=== PATIENT | female | born 1965 | race Caucasian/White ===

== ENCOUNTER 2024-11-07 09:11 | Outpatient (AMB) | payer MEDICAID, SELFPAY ==
[2024-11-07 09:48] VITALS: BP 157/85; PULSE 75; RESP 19; TEMP 36.4; O2SAT 98; BMI 30.7
--- NOTE | 2024-11-07 09:48 | PD.ORTHCLVIS ---
Vital signs 11/07/24 09:48 Height 1.55 m Height Method Stated Weight 73.964 kg Weight Measurement Method Standing Scale BMI 30.7 BP 157/85 H Blood Pressure Source Automatic Cuff Blood Pressure Location Right Upper Arm Position Sitting Respiration 19 Pulse 75 Pulse Source Monitor Temp 97.5 F Temp Source Oral Pulse Oximetry (%) 98 Oxygen Delivery Method Room Air Med/Allergies Allergies & Medications Allergies No Known Allergies Allergy (Verified 11/07/24 09:51) Medication Reconciliation pregabalin 75 mg capsule 75 mg PO bid #45 caps 09/18/23 [Rx Confirmed 11/07/24] ibuprofen 600 mg tablet 600 mg PO Q6H PRN 11/07/24 [History Confirmed 11/07/24] meloxicam 7.5 mg tablet 7.5 mg PO QDAY #45 tabs 11/07/24 [Rx] Exam Exam Patient is in no acute distress and is cooperative with the examination today. Patient has a normal mood and affect. Breathing is nonlabored. In no respiratory distress. Bilateral extremities were evaluated and demonstrates sensation intact to light touch. Palpable pedal pulses are present. No significant edema is present. Left knee incisions clean dry intact. Range of motion 0 to 105 degrees Right knee is tender to palpation medially. Her knee feels stable varus valgus stress. X-rays were personally reviewed by me today. This demonstrates a left total knee replacement in good alignment position. I do not see any evidence of loosening. For the right knee, she has mild arthritis but these films are nonweightbearing. Assessment and Plan Problem List (1) Arthritis of knee, right: Status: Acute Plan: Patient is a 59-year-old female with right knee arthritis and a left total knee replacement with persistent numbness tingling and is still painful. We discussed that nerve issues are sometimes common after left total knee replacement especially over the infrapatellar branch of the saphenous nerve. We discussed cortisone injections and conservative treatment for the right side. I would Also like to get new weightbearing x-rays Recommend knee cortisone injection as patient would like to proceed with conservative treatment at this time. The risks and benefits of the procedure were reviewed with the patient and patient gave verbal consent to continue with the procedure. Procedure: performed by Dr. Quintana Using sterile technique the Right knee was thoroughly prepped with alcohol, and approximately 1 cc of Kenalog 40 mg/mL and 4 cc of 1% lidocaine was injected without resistance into the medial tibial femoral joint space. The patient tolerated the procedure. Office Procedures GNS Level of Care Nursing/Assessment Patient Status: Established Patient Nursing Assessment/Reassesment: Medication Reconciliation, Update PMH in EMR and Vital Signs Coordination of Care: Complex Care/Chronic Disease 5 or more, Education Complex Pt/Fam, Consent,records obtained, informed consent, Results/Orders obtained and Staff clarify orders Special Needs: Language special needs Established Patient Charge Established Patient Point Assignment: 105 Established Patient Point Charge: EP Level 3 (80-115) Surgical Proc/IM SQ injection Major Surgical Procedure: Yes (RIGHT KNEE INJECTION) Medication Given Medication Given Medication Given: Yes Documented Dose Given: 4 Route: Infiitration Medication Given Medication Given Medication Given: Yes Documented Dose Given: 1 Route: Infiitration Office Meds Xylocaine 10 mg/mL (1 %) injection solution Performing Provider: Eugenio Quintana MD Performing Location: [facility] Administered by: Eugenio Quintana MD on 11/07/24 10:04 Dose Route Admin Location Dispensed Lot Number Expiration Date [facility] Access Clerk 20 mL Infiltration 20 mL [id number] 02/17/28 49663-993-10 [facility] triamcinolone acetonide 40 mg/mL suspension for injection Performing Provider: Eugenio Quintana MD Performing Location: [facility] Administered by: Eugenio Quintana MD on 11/07/24 10:04 Dose Route Admin Location Dispensed Lot Number Expiration Date [place] Access Clerk 40 mg Infiltration KNEE 1 mL [id number] 06/18/26 1689-5428-53 TEVA PARENTERAL MA Intake Visit Data Collection New Patient or Established: Established Patient (seen at [facility] within 3 years) Reason for Visit:: LEFT KNEE PAIN Linux Programmer Required: Yes Linux Programmer's name/title: DENISE PADGETT Do You Feel Safe at Home: Yes Questionairres Past Medical History Past Medical History Have you ever been diagnosed with any of the following: Respiratory Problems Smoking: No Smoking Exposure: No Subjective Visit Visit for: follow up visit and knee (LEFT) Immunization / Flu Flu Vaccine in the Last 12 Months: Yes Flu Vaccine Exclusion Criteria: No Exclusion Criteria History of Present Illness Chief complaint: LEFT KNEE PAIN Patient is a 59-year-old female with a painful left total knee replacement done by another surgeon in [place]. She reports the right knee has been bothering her as well. She has an MRI as well as x-rays. The MRI demonstrated a subchondral insufficiency fracture of the medial tibial plateau. She has not had conservative treatment. We will start her on anti-inflammatories and injections. I will also get weightbearing x-rays Personal History Red flag PMH: none BMI Counceling provided: Yes Pain Pain level (0-10): 9 Pain duration: CONSTANT Pain location: inside (medial) Pain quality: sharp and aching Pain timing: increases with activity Associated signs & symptoms: none Ambulatory data Ambulatory device: none Review of Systems Review of Systems: All systems negative unless otherwise noted in HPI.
--- NOTE | 2024-11-07 09:58 | XR_ITS ---
Examination: Bilateral AP knees standing single view AP lateral axial right knee PA flexion 3 views TECHNIQUE: Bilateral AP knees standing single view Standing PA flexion single view Standing lateral axial right knee 2 views total 4 views Exam date and time: 08/09/2024 1016 hours INDICATIONS: Right knee pain 3 months FINDINGS: Advanced narrowing medial joint space right knee Moderate osteopenia No patellar dislocation Moderate patellofemoral joint Total left knee arthroplasty. Satisfactory alignment IMPRESSION: Advanced narrowing medial joint space right knee
== END 2024-11-07 10:36 | disposition home or self-care (01) ==
LOC: HODSRG 09:11
PROVIDERS: Supervising Provider Orthopaedic Surgery Adult Reconstructive Orthopaedic Surgery; Visit Provider Orthopaedic Surgery Adult Reconstructive Orthopaedic Surgery
DX: M17.11 Unilateral primary osteoarthritis, right knee (principal); Z96.652 Presence of left artificial knee joint; T84.84XA Pain due to internal orthopedic prosthetic devices, implants and grafts, initial encounter
CPT/HCPCS: 20610; 73564; 99213; J3301; J3490; G0463

== ENCOUNTER 2024-12-02 13:04 | Outpatient (AMB) | payer MEDICAID, SELFPAY ==
[2024-12-02 13:40] VITALS: BP 157/85; PULSE 70; RESP 17; TEMP 36.3; O2SAT 96; BMI 30.7
--- NOTE | 2024-12-02 13:40 | ORTHONT_ITS ---
Vital signs 12/02/24 13:40 Height 1.55 m Height Method Stated Weight 73.964 kg Weight Measurement Method Standing Scale BMI 30.7 BP 157/85 H Blood Pressure Source Automatic Cuff Blood Pressure Location Right Upper Arm Position Sitting Respiration 17 Pulse 70 Pulse Source Monitor Temp 97.3 F Temp Source Temporal Artery Scan Pulse Oximetry (%) 96 Oxygen Delivery Method Room Air Med/Allergies Allergies & Medications Allergies No Known Allergies Allergy (Verified 12/02/24 13:41) Medication Reconciliation pregabalin 75 mg capsule 75 mg PO bid #45 caps 09/18/23 [Rx Confirmed 12/02/24] ibuprofen 600 mg tablet 600 mg PO Q6H PRN 11/07/24 [History Confirmed 12/02/24] meloxicam 7.5 mg tablet 7.5 mg PO QDAY #45 tabs 11/07/24 [Rx Confirmed 12/02/24] Exam Exam Patient is in no acute distress and is cooperative with the examination today. Patient has a normal mood and affect. Breathing is nonlabored. In no respiratory distress. Bilateral extremities were evaluated and demonstrates sensation intact to light touch. Palpable pedal pulses are present. No significant edema is present. Left knee incisions clean dry intact. Range of motion 0 to 105 degrees Right knee is tender to palpation medially. Her knee feels stable varus valgus stress. X-rays were personally reviewed by me today. This demonstrates a left total knee replacement in good alignment position. I do not see any evidence of loosening. For the right knee, she has significant joint space narrowing medially. Osteophytes are present as well. Assessment and Plan Problem List (1) Arthritis of knee, right: Status: Acute Plan: Patient is a 59-year-old female with right knee arthritis and a left total knee replacement with persistent numbness tingling and is still painful. We discussed that nerve issues are sometimes common after left total knee replacement especially over the infrapatellar branch of the saphenous nerve. She reports the nerve pain is now radiating to radiate down to her foot and I wonder if the spine could be a cause. I thus would recommend a MRI of the lumbar spine For the right knee, she has arthritis of Severe severity. I recommend conservative treatment for now. She is very much pushing for knee replacement. I discussed with her I recommend conservative treatment for now. I think the patient would benefit from seeing a structural steel painter given that she has a lot of nerve pain especially of the left leg. Office Procedures GNS Level of Care Nursing/Assessment Patient Status: Established Patient Nursing Assessment/Reassesment: Medication Reconciliation and Update PMH in EMR Coordination of Care: Complex Care and Chronic Disease 1-5, Consent,records obtained, informed consent, Education Simp Pt/Fam, Results/Orders obtained and Staff clarify orders Special Needs: Language special needs (GUAMANIAN ) Established Patient Charge Established Patient Point Assignment: 75 Established Patient Point Charge: EP Level 2 (40-75) MA Intake Visit Data Collection New Patient or Established: Established Patient (seen at [facility] within 3 years) Reason for Visit:: FU XRAY RESULT Seen by Clinical Staff ONLY (RN/MA): No Mortician Helper Required: Yes PCP or OBGYN visit in last 3 months: Yes Hx Now: No Do You Feel Safe at Home: Yes Authorities Contacted: N/A Questionairres Past Medical History Past Medical History Have you ever been diagnosed with any of the following: Respiratory Problems Smoking: No Smoking Exposure: No Subjective Visit Visit for: follow up visit and knee (RT KNEE PAIN) Immunization / Flu Flu Vaccine in the Last 12 Months: Yes Flu Vaccine Exclusion Criteria: Already Received History of Present Illness Chief complaint: LEFT KNEE PAIN Patient is a 59-year-old female with a painful left total knee replacement done by another surgeon in [place]. She reports the right knee has been bothering her as well. She has an MRI as well as x-rays. The MRI demonstrated a subchondral insufficiency fracture of the medial tibial plateau. She had an injection of the right knee and it is working. She is very emotional today. She reports that the left knee has significant numbness and tingling that starts in the radiates all the way to the foot. I discussed with her that this is likely a nerve. We spent over 20 minutes with the patient today consoling her. Personal History Red flag PMH: none BMI Counceling provided: Yes Pain Pain level (0-10): 8 Pain duration: 1 WEEK Pain location: anterior Pain quality: burning Pain timing: night and increases with activity Associated signs & symptoms: numbness, weakness and stiffness Ambulatory data Ambulatory device: none Walking distance (minutes): 1 Treatments Number of previous injections: 1 Improvement with previous injections: Yes Number of Physical Therapy sessions: 24 Improvement with PT: Yes Improvement with NSAIDS: n/a Review of Systems Review of Systems: All systems negative unless otherwise noted in HPI.
== END 2024-12-02 14:04 | disposition home or self-care (01) ==
LOC: HODSRG 13:04
PROVIDERS: Supervising Provider Orthopaedic Surgery Adult Reconstructive Orthopaedic Surgery; Visit Provider Orthopaedic Surgery Adult Reconstructive Orthopaedic Surgery
DX: M17.11 Unilateral primary osteoarthritis, right knee (principal); Z96.652 Presence of left artificial knee joint; R20.0 Anesthesia of skin
CPT/HCPCS: 99212; G0463

== ENCOUNTER 2025-02-10 08:07 | Outpatient (AMB) | payer MEDICAID, SELFPAY ==
[2025-02-10 08:21] VITALS: BP 164/85; PULSE 78; RESP 18; TEMP 36.4; O2SAT 97; BMI 30.6
--- NOTE | 2025-02-10 08:21 | PD.ORTHCLVIS ---
Vital signs 02/10/25 08:21 Height 1.55 m Height Method Stated Weight 73.51 kg Weight Measurement Method Standing Scale BMI 30.6 BP 164/85 H Blood Pressure Source Automatic Cuff Blood Pressure Location Right Upper Arm Position Sitting Respiration 18 Pulse 78 Pulse Source Monitor Temp 97.5 F Temp Source Temporal Artery Scan Pulse Oximetry (%) 97 Oxygen Delivery Method Room Air Med/Allergies Allergies & Medications Allergies No Known Allergies Allergy (Verified 02/10/25 08:22) Medication Reconciliation pregabalin 75 mg capsule 75 mg PO bid #45 caps 09/18/23 [Rx Confirmed 02/10/25] ibuprofen 600 mg tablet 600 mg PO Q6H PRN 11/07/24 [History Confirmed 02/10/25] meloxicam 7.5 mg tablet 7.5 mg PO QDAY #45 tabs 11/07/24 [Rx Confirmed 02/10/25] Exam Exam Patient is in no acute distress and is cooperative with the examination today. Patient has a normal mood and affect. Breathing is nonlabored. In no respiratory distress. Bilateral extremities were evaluated and demonstrates sensation intact to light touch. Palpable pedal pulses are present. No significant edema is present. Left knee incisions clean dry intact. Range of motion 0 to 105 degrees Right knee is tender to palpation medially. Her knee feels stable varus valgus stress. X-rays were personally reviewed by me today. This demonstrates a left total knee replacement in good alignment position. I do not see any evidence of loosening. For the right knee, she has significant joint space narrowing medially. Osteophytes are present as well. Assessment and Plan Problem List (1) Arthritis of knee, right: Status: Acute Plan: Patient is a 59-year-old female with right knee arthritis and a left total knee replacement with persistent numbness tingling and is still painful. We discussed that nerve issues are sometimes common after left total knee replacement especially over the infrapatellar branch of the saphenous nerve. She reports the nerve pain is now radiating to radiate down to her foot and I wonder if the spine could be a cause. I thus would recommend a MRI of the lumbar spine We previously ordered an MRI of the lumbar spine but I believe it was denied by insurance. I would recommend getting this as her main complaint is nervelike pain going down her leg. This developed 6 months ago and not after surgery We injected her right knee today as the last one provided 3 months of relief Recommend knee cortisone injection as patient would like to proceed with conservative treatment at this time. The risks and benefits of the procedure were reviewed with the patient and patient gave verbal consent to continue with the procedure. Procedure: performed by Dr. Quintana Using sterile technique the Right knee was thoroughly prepped with alcohol, and approximately 1 cc of Kenalog 40 mg/mL and 4 cc of 1% lidocaine was injected without resistance into the medial tibial femoral joint space. The patient tolerated the procedure. Office Procedures GNS Level of Care Nursing/Assessment Patient Status: Established Patient Nursing Assessment/Reassesment: Medication Reconciliation, Update PMH in EMR and Vital Signs Coordination of Care: Complex Care and Chronic Disease 1-5, Education Complex Pt/Fam, Consent,records obtained, informed consent, Results/Orders obtained and Staff clarify orders Special Needs: Language special needs Established Patient Charge Established Patient Point Assignment: 95 Established Patient Point Charge: EP Level 3 (80-115) Surgical Proc/IM SQ injection Major Surgical Procedure: Yes (KNEE INJECTION) Medication Given Medication Given Medication Given: Yes Documented Dose Given: 4 Route: Infiitration Medication Given Medication Given Medication Given: Yes Documented Dose Given: 1 Route: Infiitration Office Meds Xylocaine 10 mg/mL (1 %) injection solution Performing Provider: Eugenio Quintana MD Performing Location: [facility] Administered by: Eugenio Quintana MD on 02/10/25 09:40 Dose Route Admin Location Dispensed Lot Number Expiration Date [facility] Administrative Services Assistant 20 mL Infiltration 20 mL [id number] 12/18/27 45612-553-76 [facility] triamcinolone acetonide 40 mg/mL suspension for injection Performing Provider: Eugenio Quintana MD Performing Location: [facility] Administered by: Eugenio Quintana MD on 02/10/25 09:40 Dose Route Admin Location Dispensed Lot Number Expiration Date [facility] Administrative Services Assistant 40 mg intra-articular KNEE 1 mL [id number] 09/18/26 84417-126-30 BRIJESH OROZCO MA Intake Visit Data Collection New Patient or Established: Established Patient (seen at [facility] within 3 years) Reason for Visit:: 3 MONTH RIGHT KNEE INJ AND XRAY FOLLOW UP Seen by Clinical Staff ONLY (RN/ARETHA): No Verbal consent obtained for Telemed visit?: No Coastal/Harbor Defense Officer Required: Yes PCP or OBGYN visit in last 3 months: Yes Hx Now: No Do You Feel Safe at Home: Yes Authorities Contacted: N/A Questionairres Past Medical History Past Medical History Have you ever been diagnosed with any of the following: Respiratory Problems Smoking: No Smoking Exposure: No Subjective Visit Visit for: follow up visit and knee Immunization / Flu Flu Vaccine in the Last 12 Months: No Flu Vaccine Exclusion Criteria: No Exclusion Criteria History of Present Illness Chief complaint: 3 MONTH RIGHT KNEE INJ & F/U XRAYS Patient is a 59-year-old female with a painful left total knee replacement done by another surgeon in [place]. She reports the right knee has been bothering her as well. She has an MRI as well as x-rays. The MRI demonstrated a subchondral insufficiency fracture of the medial tibial plateau. She had an injection of the right knee and it is working. She is very emotional today. She reports that the left knee has significant numbness and tingling that starts in the radiates all the way to the foot. I discussed with her that this is likely a nerve. We spent over 20 minutes with the patient today consoling her. Since we last saw her, she reports that the right knee injection has helped tremendously. The right knee pain is significantly better than the left. She continues to have radiating nervelike pain down her left leg Personal History Red flag PMH: BMI BMI Counceling provided: Yes Pain Pain level (0-10): 8 Pain duration: ALL DAY Pain location: inside (medial), outside (lateral), anterior and posterior Pain quality: sharp, dull and aching Pain timing: increases with activity Associated signs & symptoms: numbness, weakness and stiffness Ambulatory data Ambulatory device: none Walking distance (minutes): 1 Treatments Number of previous injections: 1 Improvement with previous injections: No Number of Physical Therapy sessions: 24 Improvement with PT: No Improvement with NSAIDS: no Review of Systems Review of Systems: All systems negative unless otherwise noted in HPI.
== END 2025-02-10 08:49 | disposition home or self-care (01) ==
LOC: HODSRG 08:07
PROVIDERS: Supervising Provider Orthopaedic Surgery Adult Reconstructive Orthopaedic Surgery; Visit Provider Orthopaedic Surgery Adult Reconstructive Orthopaedic Surgery
DX: M17.11 Unilateral primary osteoarthritis, right knee (principal); Z96.652 Presence of left artificial knee joint; R20.2 Paresthesia of skin
CPT/HCPCS: 20610; 99213; J3301; J3490; G0463

== ENCOUNTER 2025-06-11 13:15 | Outpatient (AMB) | payer MEDICAID, SELFPAY ==
--- NOTE | 2025-06-11 13:36 | PD.ORTHCLVIS ---
Vital signs 06/11/25 13:37 Height 1.55 m Height Method Stated Weight 74.531 kg Weight Measurement Method Standing Scale BMI 31.0 BP 141/81 H Blood Pressure Source Automatic Cuff Blood Pressure Location Left Upper Arm Position Sitting Respiration 18 Pulse 75 Pulse Source Monitor Temp 98.1 F Temp Source Temporal Artery Scan Pulse Oximetry (%) 97 Oxygen Delivery Method Room Air Med/Allergies Allergies & Medications Allergies No Known Allergies Allergy (Verified 06/11/25 13:38) Medication Reconciliation pregabalin 75 mg capsule 75 mg PO bid #45 caps 09/18/23 [Rx Confirmed 06/11/25] ibuprofen 600 mg tablet 600 mg PO Q6H PRN 11/07/24 [History Confirmed 06/11/25] meloxicam 7.5 mg tablet 7.5 mg PO QDAY #45 tabs 11/07/24 [Rx Confirmed 06/11/25] Exam Exam Patient is in no acute distress and is cooperative with the examination today. Patient has a normal mood and affect. Breathing is nonlabored. In no respiratory distress. Bilateral extremities were evaluated and demonstrates sensation intact to light touch. Palpable pedal pulses are present. No significant edema is present. Left knee incisions clean dry intact. Range of motion 0 to 105 degrees Right knee is tender to palpation medially. Her knee feels stable varus valgus stress. X-rays were personally reviewed by me today. This demonstrates a left total knee replacement in good alignment position. I do not see any evidence of loosening. For the right knee, she has significant joint space narrowing medially. Osteophytes are present as well. Assessment and Plan Problem List (1) Arthritis of knee, right: Status: Acute Plan: Patient is a 59-year-old female with right knee arthritis and a left total knee replacement with persistent numbness tingling and is still painful. We discussed that nerve issues are sometimes common after left total knee replacement especially over the infrapatellar branch of the saphenous nerve. She reports the nerve pain is now radiating to radiate down to her foot and I wonder if the spine could be a cause. On She reports that the right knee has not responded to the cortisone injection. We thus discussed unicompartmental versus total knee replacement. Her pain is isolated primarily to the medial compartment and she would like a partial unicompartmental knee replacement after discussion with both partial versus total knee replacement as she had a very rough experience with the last total knee replacement. We discussed also that intraoperatively, if we do see a lot of arthritis, we would recommend a total knee replacement the patient understands the risks and that there is a possible conversion to a total knee replacement if she has progression of arthritis or other complications. Will plan for [place] and proceed with surgery. She understands risk include infection, damage to nerves and vessels, mechanical loosening, fracture, subsidence, and interval complications surgery. Plan right medial unicompartmental arthroplasty vs total knee replacement Office Procedures GNS Level of Care Nursing/Assessment Patient Status: Established Patient Nursing Assessment/Reassesment: Medication Reconciliation, Update PMH in EMR and Vital Signs Coordination of Care: Complex Care and Chronic Disease 1-5, Education Complex Pt/Fam, Consent,records obtained, informed consent, Results/Orders obtained and Staff clarify orders Special Needs: Language special needs Established Patient Charge Established Patient Point Assignment: 95 Established Patient Point Charge: EP Level 3 (80-115) MA Intake Visit Data Collection New Patient or Established: Established Patient (seen at [facility] within 3 years) Reason for Visit:: 3MTH R KNEE FOLLOW UP Seen by Clinical Staff ONLY (RN/MA): No Verbal consent obtained for Telemed visit?: No Clinical Data Research Required: Yes PCP or OBGYN visit in last 3 months: Yes Hx Now: No Do You Feel Safe at Home: Yes Authorities Contacted: N/A Questionairres Past Medical History Past Medical History Have you ever been diagnosed with any of the following: Respiratory Problems Smoking: No Smoking Exposure: No Subjective Visit Visit for: follow up visit and knee Immunization / Flu Flu Vaccine in the Last 12 Months: No Flu Vaccine Exclusion Criteria: No Exclusion Criteria History of Present Illness Chief complaint: RIGHT KNEE PAIN Patient is a 59-year-old female with a painful left total knee replacement done by another surgeon in [place]. She reports the right knee has been bothering her as well. We have tried several cortisone injections with the last one not lasting that long. She has tried NSAIDs previously. She has had 2 injections now and has had formal phjysical therap as well for 2 months. Personal History Red flag PMH: BMI BMI Counceling provided: Yes Pain Pain level (0-10): 8 Pain duration: ALL DAY Pain location: inside (medial), outside (lateral), anterior and posterior Pain quality: sharp, dull and aching Pain timing: increases with activity Associated signs & symptoms: numbness, weakness and stiffness Ambulatory data Ambulatory device: none Walking distance (minutes): 1 Treatments Number of previous injections: 2 Improvement with previous injections: No Number of Physical Therapy sessions: 24 Improvement with PT: No Improvement with NSAIDS: no Review of Systems Review of Systems: All systems negative unless otherwise noted in HPI.
[2025-06-11 13:37] VITALS: BP 141/81; PULSE 75; RESP 18; TEMP 36.7; O2SAT 97; BMI 31.0
== END 2025-06-11 14:08 | disposition home or self-care (01) ==
LOC: HODSRG 13:15
PROVIDERS: Supervising Provider Orthopaedic Surgery Adult Reconstructive Orthopaedic Surgery; Visit Provider Orthopaedic Surgery Adult Reconstructive Orthopaedic Surgery
DX: Z47.1 Aftercare following joint replacement surgery (principal); Z96.652 Presence of left artificial knee joint; M17.11 Unilateral primary osteoarthritis, right knee
CPT/HCPCS: 99213; G0463

== ENCOUNTER → 2025-06-25 | Outpatient (CLI) | payer MEDICAID, SELFPAY ==
--- NOTE | 2025-06-25 13:30 | XR_ITS ---
Examination: CT right lower extremity, without contrast. 2-D sagittal reconstructions. 2-D coronal reconstructions. 3-D reconstructions. Date and time of exam: June 25, 2025, 1332 hours INDICATIONS: Diagnosis primary unilateral osteoarthritis right knee right knee pain 2 years CTDI: vol (mGy): 12.1 DLP: (mGycm): 900 Technique: Multiple 1.25 mm axial sections of the right lower extremity without intravenous contrast have been obtained. 2-D sagittal and coronal reconstructions have been obtained. 3-D reconstructions have been obtained. Low dose protocols were performed. One or more of the following dose reduction techniques were used; automated exposure control, adjustment of the mA and/or KV according to patient size, use of iterative reconstruction technique. Findings: Moderate osteopenia Moderate narrowing right hip joint No right hip fracture or dislocation No avascular necrosis Severe narrowing medial joint space right knee Significant osteoarthritis patellofemoral joint No fracture No patellar dislocation Old deformity medial tibial plateau with small notch like defect IMPRESSION: Severe narrowing medial joint space right knee Significant osteoarthritis patellofemoral joint Old fracture deformity medial tibial plateau
== END | disposition home or self-care (01) ==
PROVIDERS: PCP Family Medicine; Referring Provider Orthopaedic Surgery Adult Reconstructive Orthopaedic Surgery; Visit Provider Orthopaedic Surgery Adult Reconstructive Orthopaedic Surgery
DX: M17.11 Unilateral primary osteoarthritis, right knee (principal); M25.861 Other specified joint disorders, right knee; M21.961 Unspecified acquired deformity of right lower leg
CPT/HCPCS: 73700

== ENCOUNTER 2025-07-13 05:35 | Day surgery (SDC) | payer MEDICAID, SELFPAY ==
--- NOTE | 2025-07-10 06:40 | EKG_ITS ---
[facility] Test Date: 2025-07-10 Pat Name: LORE ZUNIGA Department: Room: - Gender: Female [employer] Supervisor: ERIC : [id number] Requested By: Shaji Moran Order Number: [id number] Reading MD: Shaji Moran Measurements Intervals [place] Rate: 66 P: 49 [place]: 177 QRS: 20 QRSD: 76 T: 28 QT: 403 QTc: 424 Interpretive Statements SINUS RHYTHM LOW QRS VOLTAGE IN PRECORDIAL LEADS [QRS DEFLECTION < 1.0 mV IN CHEST LEADS] No previous ECG available for comparison /[id number]/S0/[id number]
[2025-07-10 07:46] VITALS: BMI 30.6
--- NOTE | 2025-07-10 08:19 | SUR.PREOP ---
Pt reports, numbness, tingling and pain bilateral legs, her primary Dr Rawls at [facility] [place] bilateral legs to rule out DVT, pt stated US was done yesterday at [facility], Shira CARIAS at Dr Pagan office notified.
[2025-07-10 09:36] LABS: Basophils # (Auto) 0.0 Thou/mm3 (0.0-0.2); Basophils % (Auto) 0 % (0-2.5); Eosinophils # (Auto) 0.1 Thou/mm3 (0.0-0.5); Eosinophils % (Auto) 1 % (0-10); Hematocrit 42.1 % (36.0-46.0); Hemoglobin 13.3 g/dL (12.0-16.0); Immature Granulocytes Auto 0.03 Thou/mm3 (0.00-0.00); Lymphocytes # (Auto) 2.4 Thou/mm3 (1.0-4.8); Lymphocytes % (Auto) 28 % (10-50); Mean Corpuscular HGB Conc 31.6 g/dl (31.0-37.0); Mean Corpuscular Hemoglobin 27.4 pg (25.0-35.0); Mean Corpuscular Volume 87 fL (80-100); Monocytes # (Auto) 0.7 Thou/mm3 (0.0-0.8); Monocytes % (Auto) 8 % (0-12); Neutrophils # (Auto) 5.3 Thou/mm3 (1.8-7.7); Neutrophils % (Auto) 63 % (37-80); Nucleated Red Blood Cell # 0.00 Thou/mm3 (0.00-0.00); Nucleated Red Blood Cell % 0 /100 WBC (0); Platelet Count 254 Thou/mm3 (140-440); RDW Standard Deviation 44.3 fL (36.4-46.3); Red Blood Count 4.86 Miln/mm3 (4.00-5.20); White Blood Count 8.5 Thou/mm3 (3.6-11.0)
[2025-07-10 09:43] LABS: INR 1.0 (0.9-1.3); Partial Thromboplastin Time 31.6 Seconds (22.0-36.0); Prothrombin Time 10.3 Seconds (9.0-12.2)
[2025-07-10 10:01] LABS: Alanine Aminotransferase 15 U/L (10-49); Albumin, Serum 5.2 gm/dL (3.4-4.8); Albumin/Globulin Ratio 2.4 (1.2-2.2); Alkaline Phosphatase 107 U/L (46-116); Anion Gap 9 (7-16); Aspartate Amino Transferase 24 U/L (0-34); BUN/Creatinine Ratio 13 Ratio (12-20); Bilirubin,Total 0.3 mg/dL (0.3-1.2); Blood Urea Nitrogen 12 mg/dL (9-23); Calcium 9.9 mg/dL (8.3-10.6); Calcium (Corrected) 9.9 mg/dL (8.5-10.1); Carbon Dioxide 28.1 mMol/L (20.0-31.0); Chloride 108 mMol/L (98-107); Creatinine (Component) 0.9 mg/dL (0.6-1.3); Estimated Creatinine Clearance 60.9 mL/min (>60); Globulin 2.2 gm/dL (2.3-3.5); Glucose 127 mg/dL (74-106); Osmolality,Calculated 290 (275-295); Potassium 4.4 mMol/L (3.4-5.1); Sodium 145 mMol/L (136-145); Total Protein 7.4 gm/dL (5.7-8.2); eGFR > 60 See Note
--- NOTE | 2025-07-10 14:51 | SUR.PREOP ---
Pt called to state that her primary Dr called her to let her know, the US legs done yesterday is negative for DVT.
[2025-07-13] VITALS (18 sets, daily range): BP systolic 116–160; BP diastolic 63–80; PULSE 67–76; RESP 11–20; TEMP 36.2–36.9; O2SAT 95–100
[2025-07-13] MEDS: MELOXICAM 7.5 MG TABLET PO (06:40)
[2025-07-13] MEDS: ACETAMINOPHEN 325 MG TABLET 650 MG PO (06:40)
[2025-07-13] MEDS: PREGABALIN 75 MG CAPSULE PO (06:40)
--- NOTE | 2025-07-13 07:21 | SUR.PREOP ---
Patient expressed gratitude for prayer before their procedure.
--- NOTE | 2025-07-13 09:03 | ESOP_ITS ---
Date of Procedure 07/13/25 Pre Op Diagnosis right knee osteoarthritis Post Op Diagnosis right knee osteoarthritis Procedure right knee unicompartmental arthroplasty Findings full thickness cartilage loss medially Procedure Description Indication: The patient is a 59 year old who has a long history of right knee pain. X-rays show degenerative arthritis involving the medial knee. Over the past several years the patient has had increasing pain, progressive limitation in function. He has failed conservative measures including activity modification, physical therapy, injections, anti-inflammatories, and assistive devices. After a lengthy discussion of the risks and benefits, the patient presents now for partial knee replacement versus a total knee replacement. The nature and purpose of the total knee replacement, alternative method(s) of treatment, the material risks involved, and the possibility of complications were fully explained to the patient. The patient was told the most common risks and complications associated with a unicompartmental knee replacement include, but are not limited to blood clots in the leg, fatal pulmonary embolism, dislocation of the prosthesis, intraoperative and postoperative fractures of the femur or tibia, infection, failure of the prosthesis or grafting materials, complications from anesthesia, reactions to blood transfusions, postoperative leg length inequality, instability of the knee replacement, nerve damage or injury, vascular injury, delayed wound healing, infections, other injury or even . In addition, there are risks associated with anesthesia given during this operation, temporary or permanent numbness on the skin lateral to the incision can be a complication unique to total knee surgery, and kneeling can be painful after knee replacement surgery. Also, the patient was told that after undergoing a partial knee replacement there may still be pain or disability or arthritis in a different compartment. We discussed with the patient that we will be using a robot-assisted technology. We discussed that there is a possibility of converting to manual instrumentation. The patient was informed that the success of this operation in part depends upon the mechanical devices which are going to be implanted and that these devices can fail or malfunction, and may need to be repaired or replaced and there are no guarantees as to the longevity of this device or its part and that it or its parts could fail prematurely. Finally, the patient was asked to follow completely and fully with all advice and recommended treatments, and that recovery and ultimate outcome are affected by their compliance with recommended treatment. Surgical technique: Patient was marked and consented in the pre-operative area. The patient was brought to the operating room and placed on the operating table in a supine position. Prior to positioning, a timeout procedure was performed between the surgeon, the anesthesiologist, and the nursing staff where the patient and the operative side were identified and confirmed. After adequate general anesthetic was obtained, the right lower extremity was prepped and draped in the usual sterile fashion. A weight based dose of Cefazolin were administered within 1 hour prior to incision. The robot was preregistered and calibrated before the incision. The extremity was exsanguinated with an esmarch badge and tourniquet inflated to 250mmHg. A midline incision was made. A median parapatellar arthrotomy was made. Femoral pins were placed therough an intraincisional manner and tibial pins were placed intraincisional ensuring that the distal most aspect of the pin was hung in the second cortex. The arrays were then tightened several times to ensure that it was fixed for the remainder of the case. Both femoral and tibial checkpoints were then placed. We then went through the registration process of the bone. We then assessed the knee deformity and balanced the knee with a valgus force. We also used the robot to aid in judging laxity in both extension and flexion. Final based on laxity and alignment we changed the preoperative assessment to obtain proper proper implant positioning and to correct deformity. We then mapped the femur to ensure that there was no large stepff at the anterior interface of the femoral component. Attention was then placed to the tibia. We made a tibial cut using the robot ensuring that both the MCL and the patella tendon were protected with retractors. We then went to the femur and made the posterior cut. A alex was then attached and the remaining bone was prepared using a alex and robotic assistance. We then prepared the keel with a alex followed by pegs. We then prepared the pegs on the tibia. A trial reduction was performed with a size 1 femoral component and a size 2 keeled tibial component. The patella tracked centrally, and no lateral retinacular release was necessary. The knee was balanced in extension and flexion in both sagittal and coronal planes.The trial implants were removed. The arrays, pins, and checkpoints were all removed. We performed a verification that all pins were removed. The cut bone surfaces were lavaged. A size 1 right femoral component, a size 2 keeled tibial component were impacted into position using 1 bag of palacos. A trial insert was placed and impacted into position. The knee was left in extension until the cement hardened. The knee was felt to be well balanced in the sagittal and coronal plane. The final 2x9 mm polyethylene was impacted into the tibial tray. The knee was brought out to full extension, flexed up to 120 degrees. It was stable to varus and valgus stress and appropriately balanced in flexion and extension. The wounds were copiously irrigated following deflation of tourniquet. The medial retinaculum was reapproximated with #1 vicryl and quill. The subcutaneous tissues were closed with 0 and 2-0 interrupted Vicryl. The skin was closed with 3-0 Monofilament V loc suture. A sterile dressing was applied. The patient was transferred to a bed and brought to recovery in stable condition. The patient tolerated the procedure well. There were no intraoperative complications. Sponge and needle counts were correct times 2. As the attending surgeon, I attest I was present and performed the entire operation. Grafts/Implants Size 1 Femur Size 2 Tibia 8mm poly 1 bag of palacos Anesthesia spinal Implants Implants comments: Ailvxing net Pathology / specimen None Pathology comment: Indication: The patient is a 59 year old who has a long history of right knee pain. X-rays show degenerative arthritis involving the medial knee. Over the past several years the patient has had increasing pain, progressive limitation in function. He has failed conservative measures including activity modification, physical therapy, injections, anti-inflammatories, and assistive devices. After a lengthy discussion of the risks and benefits, the patient presents now for partial knee replacement versus a total knee replacement. The nature and purpose of the total knee replacement, alternative method(s) of treatment, the material risks involved, and the possibility of complications were fully explained to the patient. The patient was told the most common risks and complications associated with a unicompartmental knee replacement include, but are not limited to blood clots in the leg, fatal pulmonary embolism, dislocation of the prosthesis, intraoperative and postoperative fractures of the femur or tibia, infection, failure of the prosthesis or grafting materials, complications from anesthesia, reactions to blood transfusions, postoperative leg length inequality, instability of the knee replacement, nerve damage or injury, vascular injury, delayed wound healing, infections, other injury or even . In addition, there are risks associated with anesthesia given during this operation, temporary or permanent numbness on the skin lateral to the incision can be a complication unique to total knee surgery, and kneeling can be painful after knee replacement surgery. Also, the patient was told that after undergoing a partial knee replacement there may still be pain or disability or arthritis in a different compartment. We discussed with the patient that we will be using a robot-assisted technology. We discussed that there is a possibility of converting to manual instrumentation. The patient was informed that the success of this operation in part depends upon the mechanical devices which are going to be implanted and that these devices can fail or malfunction, and may need to be repaired or replaced and there are no guarantees as to the longevity of this device or its part and that it or its parts could fail prematurely. Finally, the patient was asked to follow completely and fully with all advice and recommended treatments, and that recovery and ultimate outcome are affected by their compliance with recommended treatment. Surgical technique: Patient was marked and consented in the pre-operative area. The patient was brought to the operating room and placed on the operating table in a supine position. Prior to positioning, a timeout procedure was performed between the surgeon, the anesthesiologist, and the nursing staff where the patient and the operative side were identified and confirmed. After adequate general anesthetic was obtained, the right lower extremity was prepped and draped in the usual sterile fashion. A weight based dose of Cefazolin were administered within 1 hour prior to incision. The robot was preregistered and calibrated before the incision. The extremity was exsanguinated with an esmarch badge and tourniquet inflated to 250mmHg. A midline incision was made. A median parapatellar arthrotomy was made. Femoral pins were placed therough an intraincisional manner and tibial pins were placed intraincisional ensuring that the distal most aspect of the pin was hung in the second cortex. The arrays were then tightened several times to ensure that it was fixed for the remainder of the case. Both femoral and tibial checkpoints were then placed. We then went through the registration process of the bone. We then assessed the knee deformity and balanced the knee with a valgus force. We also used the robot to aid in judging laxity in both extension and flexion. Final based on laxity and alignment we changed the preoperative assessment to obtain proper proper implant positioning and to correct deformity. We then mapped the femur to ensure that there was no large stepff at the anterior interface of the femoral component. Attention was then placed to the tibia. We made a tibial cut using the robot ensuring that both the MCL and the patella tendon were protected with retractors. We then went to the femur and made the posterior cut. A alex was then attached and the remaining bone was prepared using a alex and robotic assistance. We then prepared the keel with a alex followed by pegs. We then prepared the pegs on the tibia. A trial reduction was performed with a size 1 femoral component and a size 2 keeled tibial component. The patella tracked centrally, and no lateral retinacular release was necessary. The knee was balanced in extension and flexion in both sagittal and coronal planes.The trial implants were removed. The arrays, pins, and checkpoints were all removed. We performed a verification that all pins were removed. The cut bone surfaces were lavaged. A size 1 right femoral component, a size 2 keeled tibial component were impacted into position using 1 bag of palacos. A trial insert was placed and impacted into position. The knee was left in extension until the cement hardened. The knee was felt to be well balanced in the sagittal and coronal plane. The final 2x9 mm polyethylene was impacted into the tibial tray. The knee was brought out to full extension, flexed up to 120 degrees. It was stable to varus and valgus stress and appropriately balanced in flexion and extension. The wounds were copiously irrigated following deflation of tourniquet. The medial retinaculum was reapproximated with #1 vicryl and quill. The subcutaneous tissues were closed with 0 and 2-0 interrupted Vicryl. The skin was closed with 3-0 Monofilament V loc suture. A sterile dressing was applied. The patient was transferred to a bed and brought to recovery in stable condition. The patient tolerated the procedure well. There were no intraoperative complications. Sponge and needle counts were correct times 2. As the attending surgeon, I attest I was present and performed the entire operation. Grafts/Implants Size 1 Femur Size 2 Tibia 8mm poly 1 bag of palacos Estimated Blood Loss 100 Condition Stable Disposition same day Surgeon Eugenio Quintana MD Surgical Staff Operation Date: 07/13/25 07:30 Case Staff Anesthesiologist: Ambrocio Tijerina RN First Assistant: Maryjane Alfaro
--- NOTE | 2025-07-13 09:10 | XR_ITS ---
EXAMINATION: Right knee 2 views TECHNIQUE: AP lateral right knee 2 views Date and time: July 13, 2025, 0950 hours INDICATIONS: Postop hemiarthroplasty FINDINGS: Right knee hemiarthroplasty. Satisfactory alignment Moderate osteopenia Satisfactory alignment No fracture IMPRESSION: Right knee hemiarthroplasty with satisfactory alignment
--- NOTE | 2025-07-13 09:21 | SUR.PHASEI ---
pt received from OR in recovery bay 1. pt asleep but responds to voice, breathing unlabored on oxymask 4l. v/s stable. pt dressing to right lower extremity cdi. report received from Makayla Castro and Dr. Tijerina.
--- NOTE | 2025-07-13 11:42 | SUR.PHASEII ---
pt awake, alert, able to follow commands, breathing unlabored, dressing to right lower extremity clean, dry, and intact, report from Adolfo EDWARDS
--- NOTE | 2025-07-13 12:15 | SUR.PHASEII ---
Report to Adolfo EDWARDS
--- NOTE | 2025-07-13 13:43 | SUR.PHASEII ---
pt awake and alert, breathing unlabored on room air. v/s stable. pt dressing to right lower extremity cdi. pt cleared by physical therapist Claire. pt able to ambulate to pacu bathroom using walker. pt able to ambulate to wheelchair with steady gait. d/c instructions given with jack Rodriguez in room, all questions answered. pt d/c via wheelchair with all belongings.
== END 2025-07-13 13:43 | disposition home or self-care (01) ==
PROVIDERS: Anesthesiology; PCP Family Medicine; Referring Provider Orthopaedic Surgery Adult Reconstructive Orthopaedic Surgery; Visit Provider Orthopaedic Surgery Adult Reconstructive Orthopaedic Surgery
PROC: (CPT 20985; principal; 2025-07-13 07:30)
DX: M17.11 Unilateral primary osteoarthritis, right knee (principal); Z01.810 Encounter for preprocedural cardiovascular examination
CPT/HCPCS: 20985; 27447; 36415; 73560; 80053; 85025; 85610; 85730; 93005; 97162; A4217; A4649; C1713; C1776; J0131; J0690; J1100; J1171; J1885; J2250; J2405; J2704; J2795; J3010; J3490; J7030; A4648; A9270; J7999

== ENCOUNTER 2025-07-28 10:30 | Outpatient (AMB) | payer MEDICAID, SELFPAY ==
--- NOTE | 2025-07-28 11:06 | PD.ORTHCLVIS ---
Vital signs 07/28/25 11:10 Height 1.55 m Height Method Stated Weight 71.441 kg Weight Measurement Method Standing Scale BMI 29.7 BP 171/85 H Blood Pressure Source Automatic Cuff Blood Pressure Location Left Upper Arm Position Sitting Respiration 19 Pulse 86 Pulse Source Monitor Temp 97.6 F Temp Source Temporal Artery Scan Pulse Oximetry (%) 98 Oxygen Delivery Method Room Air Med/Allergies Allergies & Medications Allergies No Known Allergies Allergy (Verified 07/28/25 11:10) Medication Reconciliation gabapentin 300 mg capsule 300 mg PO TID 07/10/25 [History Confirmed 07/28/25] levothyroxine 75 mcg tablet 75 mcg PO DAILY 07/10/25 [History Confirmed 07/28/25] losartan 100 mg tablet 100 mg PO DAILY 07/10/25 [History Confirmed 07/28/25] lovastatin 20 mg tablet 20 mg PO DAILY 07/10/25 [History Confirmed 07/28/25] potassium chloride 10 mEq tablet,extended release 10 meq PO DAILY 07/10/25 [History Confirmed 07/28/25] tirzepatide 2.5 mg/0.5 mL subcutaneous pen injector (Mounjaro) 2.5 mg subcut QWEEK 07/10/25 [History Confirmed 07/28/25] acetaminophen 500 mg tablet (Acetaminophen Extra Strength) 1,000 mg (2 x 500 mg) PO Q6H PRN pain #90 tabs 07/13/25 [Rx Confirmed 07/28/25] aspirin 81 mg tablet,delayed release 81 mg PO BID #60 tabs 07/13/25 [Rx Confirmed 07/28/25] doxycycline hyclate 100 mg tablet 100 mg PO BID #14 tabs 07/13/25 [Rx Confirmed 07/28/25] gabapentin 300 mg capsule 300 mg PO .qhs #30 caps 07/13/25 [Rx Confirmed 07/28/25] sennosides 8.6 mg-docusate sodium 50 mg tablet (Senna-S) 1 tab-cap PO QDAY #30 tabs 07/13/25 [Rx Confirmed 07/28/25] oxycodone 5 mg tablet 5 mg PO Q6H PRN pain #28 tabs 07/28/25 [Rx Confirmed 07/28/25] Exam Exam patient is in no acute distress and is cooperative with the examination today. Breathing is nonlabored. Patient has a normal mood and affect. Bilateral extremities were evaluated and demonstrates sensation intact to light touch. Palpable pedal pulses are present. No significant edema is present. Bilateral hips were examined. The patient has no pain with log roll of the hips. Internal rotation to 30 degrees and external rotation to 30 degrees is painless. Negative FADIR. Right knee was examined today. The right knee is in neutral alignment. The incision is clean dry and intact. Assessment and Plan Problem List (1) Arthritis of knee, right: Status: Acute Plan: Patient is a 59-year-old female with right knee arthritis and a left total knee replacement with persistent numbness tingling and is still painful. She is doing well status post right total knee replacement. She is very happy with her progress. Will see her back in 4 weeks Plan right medial unicompartmental arthroplasty vs total knee replacement Office Procedures GNS Level of Care Nursing/Assessment Patient Status: Established Patient Nursing Assessment/Reassesment: Medication Reconciliation, Update PMH in EMR and Vital Signs Coordination of Care: Complex Care and Chronic Disease 1-5, Education Complex Pt/Fam, Consent,records obtained, informed consent, Results/Orders obtained and Staff clarify orders Special Needs: Language special needs Established Patient Charge Established Patient Point Assignment: 95 Established Patient Point Charge: EP Level 3 (80-115) Questionairres Past Medical History Past Medical History Have you ever been diagnosed with any of the following: Neurological Problems Seizures: No Cardiology Problems Peripheral Vascular Disease: Yes Hypercholesterolemia: Yes Congestive Heart Failure: No Hypertension: Yes Varicose Veins: Yes Respiratory Problems Chronic Obstructive Pulmonary Disease (COPD): No Smoking: No Smoking Exposure: No Stomache/Intestinal Problems Hepatitis: No Genital/Urinary Problems Renal Disease: No Reproductive Problems Previous Pregnancies: Yes Musculoskeletal Problems Arthritis: Yes Degenerative Disk Disease: Yes (L5 bulging disk, recent MRI) Carpal Tunnel Syndrome: Yes (Right) Head,Eye,Nose,Throat Problems Cataracts: Yes Endocrine Problems Diabetes Mellitus Type 1: No Diabetes Mellitus Type 2: Yes Hypothyroidism: Yes Other Problems Hospitalization: Yes Shingles: No Blood Transfusions: No Blood Transfusion Reaction: No Anesthesia Reactions: No Clostridium Difficile: No Cancer: No Subjective Visit Visit for: follow up visit and knee Immunization / Flu Flu Vaccine in the Last 12 Months: No Flu Vaccine Exclusion Criteria: No Exclusion Criteria History of Present Illness Chief complaint: right knee pain Patient is doing well status post partial knee replacement on the right. She reports she is doing well and has minimal pain Pain Associated signs & symptoms: none Ambulatory data Ambulatory device: none Treatments Improvement with previous injections: No Improvement with PT: No Improvement with NSAIDS: no Review of Systems Review of Systems: All systems negative unless otherwise noted in HPI.
[2025-07-28 11:10] VITALS: BP 171/85; PULSE 86; RESP 19; TEMP 36.4; O2SAT 98; BMI 29.7
== END 2025-07-28 11:18 | disposition home or self-care (01) ==
LOC: HODSRG 10:30
PROVIDERS: PCP Family Medicine; Referring Provider Family Medicine; Supervising Provider Orthopaedic Surgery Adult Reconstructive Orthopaedic Surgery; Visit Provider Orthopaedic Surgery Adult Reconstructive Orthopaedic Surgery
DX: Z47.1 Aftercare following joint replacement surgery (principal); Z96.651 Presence of right artificial knee joint; M25.561 Pain in right knee; R20.0 Anesthesia of skin; R20.2 Paresthesia of skin; I10 Essential (primary) hypertension
CPT/HCPCS: 99213; G0463